=== PATIENT | male | born 1945 ===

== ENCOUNTER 2019-08-11 09:51 | Inpatient (IN) | payer MEDICARE, OTHER ==
--- NOTE | 2019-08-11 10:27 | ED ---
HPI Chest Pain - HPI Summary HPI Summary: Marcela is a 74 y/o M w/ Hx of COPD who presents to [facility] with complaints of cough and right rib pain. He states that he has a "smoker's cough" at baseline but experienced an exacerbation of his cough on 08/09/19. Afterwards, the patient had onset of right-sided rib pain. Deep breaths are noted to aggravate his Sx. Patient is a current smoker, notes that she tries to limit the patient's smoking; patient smokes around 4-5 cigarettes daily on average. Fever, vomiting , diarrhea are denied. Hx of PTSD, depression, HTN noted. Patient reports that he has a stent in his groin. No Hx of [place] or cardiac stents reported. FMHx of cardiac disease is denied. Patient denies alcohol consumption but endorses marijuana usage. Home medications and allergies are reviewed. Home Medications Medication Instructions Recorded Confirmed Type Citalopram TAB* [Celexa TAB*] 20 mg PO DAILY 06/11/12 02/15/15 History Metoprolol Tartrate TAB* 25 mg PO DAILY 06/11/12 02/15/15 History [Lopressor TAB*] Omeprazole CAP* 20 mg PO DAILY 06/11/12 02/15/15 History Temazepam CAP* [Restoril CAP*] 30 mg PO BEDTIME 06/11/12 02/15/15 History Albuterol/Ipratropium NEB.ROSA* 1 neb INH Q6H 02/15/15 02/15/15 History [Duoneb NEB.ROSA*] Atorvastatin* [Lipitor*] 20 mg PO 1700 02/15/15 02/15/15 History Ferrous Sulfate TAB* 325 mg PO BID 02/15/15 02/15/15 History - History of Current Complaint Chief Complaint: EDChestWallPain Time Seen by Provider: 08/11/19 10:17 Hx Obtained From: Patient Onset/Duration: Started Days Ago, Still Present Timing: Constant, Lasting Days Current Severity: Severe Pain Intensity: 8 Pain Scale Used: 0-10 Numeric Chest Pain Location: Right Lateral Aggravating Factor(s): Deep Breaths Associated Signs and Symptoms: Positive: Chest Pain - right rib pain, Cough, Other: - negative - diarrhea. Negative: Fever, Vomiting - Allergy/Home Medications Allergies/Adverse Reactions: Allergies Allergy/AdvReac Type Severity Reaction Status Date / Time amitriptyline Allergy Intermediate Anxiety Verified 08/11/19 11:15 Monoamine Oxidase Inhibitors Allergy Intermediate Swelling Verified 08/11/19 13: 36 thioridazine Allergy Intermediate Anxiety Verified 08/11/19 11:15 Home Medications: Home Medications Citalopram TAB* [Celexa TAB*] 40 mg PO DAILY 06/11/12 [History Confirmed ] Metoprolol Tartrate TAB* [Lopressor TAB*] 12.5 mg PO DAILY 06/11/12 [History Confirmed 08/11/19] Albuterol/Ipratropium NEB.ROSA* [Duoneb NEB.ROSA*] 1 neb INH Q6H 02/15/15 [ History Confirmed 08/11/19] Atorvastatin* [Lipitor*] 80 mg PO DAILY 02/15/15 [History Confirmed 08/11/19] Ferrous Sulfate TAB* 325 mg PO DAILY 02/15/15 [History Confirmed 08/11/19] Albuterol HFA INHALER* [Ventolin HFA Inhaler*] 2 puff INH Q4H PRN 08/11/19 [ History Confirmed 08/11/19] Aspirin EC TAB* [Ecotrin EC Low Dose 81 MG*] 81 mg PO BID 08/11/19 [History Confirmed 08/11/19] Baclofen TAB* [Lioresal TAB*] 10 mg PO TID 08/11/19 [History Confirmed 08/11/19] Cholecalciferol TAB* [Vitamin D TAB*] 1,000 unit PO DAILY 08/11/19 [History Confirmed 08/11/19] Cyanocobalamin INJ * [Vitamin B12 INJ *] 1,000 mcg IM MONTHLY 08/11/19 [History Confirmed 08/11/19] Diazepam TAB(*) [Valium TAB(*)] 10 mg PO DAILY 08/11/19 [History Confirmed 08/11] Ibuprofen TAB* [Motrin TAB* 400 MG] 400 mg PO BID 08/11/19 [History Confirmed ] Lisinopril TAB* [Prinivil TAB*] 2.5 mg PO DAILY 08/11/19 [History Confirmed ] Tamsulosin CAP* [Flomax CAP*] 0.4 mg PO DAILY 08/11/19 [History Confirmed ] PMH/Surg Hx/FS Hx/Imm Hx Endocrine/Hematology History: Denies: Hx Anticoagulant Therapy, Hx Diabetes, Hx Thyroid Disease, Other Endocrine/Hematological Disorders Cardiovascular History: Reports: Hx Hypertension Denies: Hx Pacemaker/ICD, Other Cardiovascular Problems/Disorders Respiratory History: Reports: Hx Chronic Obstructive Pulmonary Disease (COPD), Other Respiratory Problems/Disorders - COPD Denies: Hx Asthma GI History: Reports: Hx Gastroesophageal Reflux Disease, Other GI Disorders - GERD History: Denies: Hx Renal Disease, Other Problems/Disorders Musculoskeletal History: Denies: Other Musculoskeletal History Sensory History: Denies: Other Sensory Impairments Opthamlomology History: Denies: Other Sensory Impairments Neurological History: Denies: Hx Dementia, Hx Seizures, Other Neuro Impairments/Disorders Psychiatric History: Reports: Hx Substance Abuse Denies: Other Psychiatric Issues/Disorders - Surgical History Surgery Procedure, Year, and Place: AAA REPAIR Infectious Disease History: No Infectious Disease History: Reports: Hx Shingles - 1994 Denies: Hx Hepatitis, Hx Human Immunodeficiency Virus (HIV), Traveled Outside the [place] in Last 30 Days - Family History Known Family History: Negative: Cardiac Disease - Social History Alcohol Use: None Substance Use Type: Reports: Marijuana Smoking Status (MU): Light Every Day Tobacco Smoker Type: Cigarettes Amount Used/How Often: 5/cigs day Review of Systems Negative: Fever Positive: Chest Pain - right rib pain Positive: Cough Negative: Vomiting, Diarrhea All Other Systems Reviewed And Are Negative: Yes Physical Exam - Summary Physical Exam Summary: Constitutional: Well-developed, Well-nourished, Alert. (-) Distressed Skin: Warm, Dry HENT: Normocephalic; Atraumatic Eyes: Conjunctiva normal Neck: Musculoskeletal ROM normal neck. (-) JVD, (-) Stridor, (-) Tracheal deviation Cardio: Rhythm regular, rate normal, Heart sounds normal; Intact distal pulses; Radial pulses are 2+ and symmetric. (-) Murmur Pulmonary/Chest wall: (+) Right lateral chest wall pain; (+) Wheezing in right lung field; (-) Respiratory distress, (-) Rales Abd: Soft, (-) tenderness, (-) Distension, (-) Guarding, (-) Rebound Musculoskeletal: (-) Edema Lymph: (-) Cervical adenopathy Neuro: Alert, Oriented x3 Psych: Mood and affect Normal Triage Information Reviewed: Yes Vital Signs On Initial Exam: Initial Vitals Temp Pulse Resp BP Pulse Ox 98.8 F 66 20 164/95 95 08/11/19 09:54 08/11/19 09:54 08/11/19 09:54 08/11/19 09:54 08/11/19 09:54 Vital Signs Reviewed: Yes Procedures - Sedation Patient Received Moderate/Deep Sedation with Procedure: No Diagnostics - Vital Signs Vital Signs Temp Pulse Resp BP Pulse Ox 08/11/19 09:54 98.8 F 66 20 164/95 95 - Laboratory Result Diagrams: 08/11/19 10:50 08/11/19 10:50 Lab Statement: Any lab studies that have been ordered have been reviewed, and results considered in the medical decision making process. - Radiology CXR with ribs Radiology Interpretation Completed By: Radiologist Summary of Radiographic Findings: IMPRESSION: 1. Minimally displaced right lateral eighth and ninth rib fractures. Trace right pleural. effusion with no pneumothorax. 2. Old right 10th rib fracture. 3. Abdominal aortic stent. THIS REPORT WAS REVIEWED BY ED PHYSICIAN. - EKG 1051 Cardiac Rate: NL EKG Rhythm: Sinus Rhythm - rate of 63 BPM Summary of EKG Findings: EKG showed NSR with rate of 63 BPM, T-wave inversion in aVF, no evidence for ischemia, no STEMI. ED physician has reviewed and interpreted this EKG. Chest Pain Course/Dx - Course Course Of Treatment: Patient is here with right-sided chest pain after coughing. Patient had an x-ray which showed right-sided rib fractures. However , given patient's age and no evidence of trauma, labs were ordered. Patient did have an elevated troponin which was unexplainable. Patient has no risk factors for PE. However, given patient's elevated troponin and no history of cardiac disease, patient is admitted for further workup - Diagnoses Provider Diagnoses: Elevated troponin, Rib fracture, Chest pain - Provider Notifications Discussed Care Of Patient With: Regan Hook Time Discussed With Above Provider: 12:00 Instructed by Provider To: Admit As Inpatient Discharge ED - Sign-Out/Discharge Documenting (check all that apply): Patient Departure - admit - Discharge Plan Condition: Stable Disposition: ADMITTED TO [facility] - Billing Disposition and Condition Condition: STABLE Disposition: Admitted to [facility] - Attestation Statements Document Initiated by Scribe: Yes Documenting Scribe: HORACE CRANE Provider For Whom Scribe is Documenting (Include Credential): MARKO WHITESIDE MD Scribe Attestation: I, HORACE CRANE, scribed for MARKO WHITESIDE MD on 08/11/19 at 2155. Scribe Documentation Reviewed: Yes Provider Attestation: The documentation as recorded by the HORACE falk accurately reflects the service I personally performed and the decisions made by me, MARKO WHITESIDE MD Status of Scribe Document: Viewed
[2019-08-11 11:11] LABS: ABS Basophils 0.1 10^3/ul (0-0.2); ABS Eosinophils 0.1 10^3/ul (0-0.6); ABS Lymphocytes 1.1 10^3/ul (1.0-4.8); ABS Monocytes 0.7 10^3/ul (0-0.8); Eosinophil % 1.1 %; Hematocrit 36 % (42-52); Hemoglobin 12.3 g/dL (14.0-18.0); Mean Corpuscular HGB Conc 34 g/dL (31-36); Mean Corpuscular Hemoglobin 32 pg (27-31); Mean Corpuscular Volume 93 fL (80-94); Mean Platelet Volume 8.4 fL (7.4-10.4); Platelet Count 187 10^3/uL (150-450); Red Blood Count 3.85 10^6 /uL (4.18-5.48); Red Cell Distribution Width 15 % (10-15)
[2019-08-11 11:40] LABS: Troponin I 0.05 ng/mL (<0.03)
[2019-08-11 11:49] LABS: ALT 13 U/L (7-52); AST 16 U/L (13-39); Albumin/Globulin Ratio 1.7 (1-3); Alkaline Phosphatase 97 U/L (34-104); Anion Gap 5 mmol/L (2-11); Blood Urea Nitrogen 13 mg/dL (6-24); CO2 Carbon Dioxide 32 mmol/L (22-32); Calcium 8.8 mg/dL (8.6-10.3); Chloride 104 mmol/L (101-111); EGFR African American 65.7 (>60); EGFR Non-African American 54.3 (>60); Globulin 2.3 g/dL (2-4); Glucose 72 mg/dL (70-100); Potassium 3.5 mmol/L (3.5-5.0); Sodium 141 mmol/L (135-145); Total Protein 6.3 g/dL (6.4-8.9)
[2019-08-11] MEDS ORDERED: Albuterol HFA INHALER* 8 gm MDI INH PRN (12:52)
[2019-08-11] MEDS ORDERED: NS 0.9% 1000 ML** 1,000 ML IV SCH (13:15)
--- NOTE | 2019-08-11 14:11 | HP ---
CC: GARY Dash * HISTORY AND PHYSICAL: DATE OF ADMISSION: 08/11/19 PRIMARY CARE PROVIDER: GARY Dash ATTENDING PHYSICIAN: Dr. Regan Hook * (dictated by GARY Aragon). CHIEF COMPLAINT: Right lateral chest wall pain. HISTORY OF PRESENT ILLNESS: Mr. Rosales is a 74-year-old male with past medical history of hypertension, COPD, chronic pain, who presented to the ER today with complaints of right lateral chest wall pain. The patient states that on 08/09/19, he was coughing and suddenly developed right lateral chest wall pain. The patient reports that he has had a cough for "30 to 40 years." This time, he coughed and felt sudden onset pain. He reports that the pain felt like a knife to the right side. The pain only occurs with coughing or sneezing. He denies pain with deep breathing. He denies fevers, chills, recent travel. He denies left-sided chest pain, radiation of pain, diaphoresis. He does complain of dyspnea, although he reports that he had always had this and there has been no change in his dyspnea. He occasionally becomes dizzy with standing and has had this for years. He has had bilateral lower extremity edema since May without associated change in dyspnea. In the ER, the patient received a full workup revealing a normocytic anemia, elevated creatinine, troponin of 0.05. EKG was obtained and shows heart rate 62 with flat T-waves in II, inverted T-waves in III and aVF (unchanged from 2010 EKG); also possible ST depression in V3 without any ST elevation. Right ribs and chest x- ray were obtained and shows minimally displaced right lateral 8th through 9th rib fractures, trace right pleural effusion without pneumothorax , old right 10th rib fracture, abdominal aortic stent. The patient's HEART score is 5, placing him at moderate risk. The hospitalist team was asked to evaluate the patient for admission. PAST MEDICAL HISTORY: 1. Hypertension. 2. COPD. 3. Iron-deficiency anemia. 4. GERD. 5. BPH. 6. Chronic pain. 7. Anxiety/depression. HOME MEDICATIONS: 1. Albuterol HFA inhaler 2 puffs inhalation q.4 hours p.r.n. 2. DuoNeb 1 neb inhalation q.6 hours. 3. Aspirin 81 mg p.o. b.i.d. 4. Atorvastatin 80 mg p.o. daily. 5. Baclofen 10 mg p.o. t.i.d. 6. Cholecalciferol 1000 units p.o. daily. 7. Citalopram 40 mg p.o. daily. 8. Cyanocobalamin 1000 mg IM monthly. 9. Diazepam 10 mg p.o. daily. 10. Ferrous sulfate 325 mg p.o. daily. 11. Ibuprofen 400 mg p.o. b.i.d. 12. Lisinopril 2.5 mg p.o. daily. 13. Metoprolol tartrate 12.5 mg p.o. daily. 14. Tamsulosin 0.4 mg p.o. daily. DRUG ALLERGIES: AMITRIPTYLINE, anxiety; THIORIDAZINE, anxiety; MAOI INHIBITORS , swelling. FAMILY HISTORY: Maternal grandmother, breast cancer. Father from COPD as a result of being a electron beam welder. Mother had uterine cancer. The patient had 1 brother with diabetes mellitus. The patient has had 6 brothers, 3 brothers have from various causes including overdose, AIDS, Alzheimer's complications. No family history of heart disease, CVA. SOCIAL HISTORY: The patient has a 120-pack year tobacco use history. He has decreased to approximately 5 to 6 cigarettes per day for the last 2 months. He does not use alcohol. He uses marijuana weekly. He is , with 2 children. He lives with his spouse and [id number]. He was in the [employer] for 3 years and had been stationed in [place]. He is retired since 1979. 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 In the event that he is unable to make his own medical decisions, he has appointed his , Diana Rosales, to be his surrogate decision maker. He has opted to be a full code. REVIEW OF SYSTEMS: A 14-point review of systems has been performed and all the pertinent positives and negatives are in the HPI. All other systems are negative. PHYSICAL EXAMINATION GENERAL: Mr. Rosales is a well-developed, well-nourished, thin, older white male, who is sitting up in bed. He appears to be in no acute distress. He does appear mildly chronically ill. HEENT: PERRL. EOMI. Sclerae are nonicteric without injection. Hearing is grossly intact. Oral mucous membranes are mildly dry. Pharynx is clear. The tongue is at midline. Palate elevates symmetrically. PULMONARY: Symmetrical chest expansion without use of accessory muscles. Diminished breath sounds throughout with end-expiratory wheezing without rales or rhonchi. CARDIOVASCULAR: Regular rate and rhythm with S1, S2 present. Heart sounds are distant. No murmurs, rubs, clicks, or gallops. There is no JVD. There is bilateral 1+ pitting pretibial edema. ABDOMEN: Flat. Bowel sounds in all quadrants. Soft, nontender to palpation. MUSCULOSKELETAL: Full range of motion. No pain or deformity. NEURO: The patient is awake. He is alert and oriented x3. Cranial nerves II through XII are grossly intact. He moves all of his extremities. His motor strength is 5/5 bilaterally in the upper and lower extremities. DIAGNOSTIC STUDIES/LAB DATA: 1. CBC: WBC 9.0, HGB 12.3, HCT 36, MCV 93, platelets 187. 2. CMP: Sodium 141, potassium 3.5, chloride 104, carbon dioxide 32, creatinine 1.30, BUN 13. Troponin 0.05. 3. EKG: Rate 63; flat T-wave in lead II; inverted T-wave in III, aVF; possible ST depression in V3. No ST elevation. 4. Right rib/PA chest x-ray, impression: Minimally displaced right lateral 8th and 9th rib fractures. Trace right pleural effusion with no pneumothorax. Old right 10th rib fracture. Abdominal aortic stent. ASSESSMENT AND PLAN: Mr. Rosales is a 74-year-old male with past medical history of hypertension, chronic obstructive pulmonary disease with chronic cough, who was coughing 2 days ago and suddenly experienced right-sided chest pain and is found to have a right rib fracture and elevated troponin. The patient will be admitted for: 1. Chest pain. The patient reports right lateral chest wall pain. This is likely due to his right-sided rib fracture. Incidentally noted is an elevated troponin of 0.05 as well as some EKG abnormalities including possible ST depression in lead V3; T-wave abnormalities in II, III and aVF appear chronic and are unchanged from 2010. Due to the above findings, we will rule out acute coronary syndrome. We will continue to trend the patient's troponins. He will have an echocardiogram due to chest pain, EKG abnormalities, and lower extremity edema that he reports for the last approximately 2 months. Risk stratification will be done with lipid panel and hemoglobin A1c. Repeat EKG will be obtained in the morning. The patient will receive a nuclear medicine stress test. 2. Right rib fracture. The patient has right lateral minimally displaced 8th through 9th rib fractures without pneumothorax. We will continue pain management and conservative treatment. 3. Elevated creatinine. The patient's creatinine is 1.30. Last creatinine in 2011 was within normal limits. I am unsure if this is acute kidney injury or chronic kidney disease. He will receive 1 L IV fluids at 75 cc per hour with recheck of creatinine in a.m. to attempt to determine if this is acute kidney injury versus chronic condition. 4. Hypertension. Continue home medications, lisinopril and metoprolol. We will add on IV hydralazine as the patient is hypertensive at this time. 5. Chronic obstructive pulmonary disease. Continue home medications, which include albuterol inhaler and DuoNeb nebulizer. 6. Iron-deficiency anemia. Continue iron supplementation. 7. Chronic pain. Continue baclofen. 8. Benign prostatic hyperplasia. Continue tamsulosin. 9. Depression/anxiety. Continue citalopram, diazepam. 10. DVT prophylaxis: According to DVT Risk Assessment, the patient scores 3, placing him at high risk. He has been started on Lovenox. 11. Code status: Full code. TIME SPENT: Approximately 60 minutes was spent on this admission, greater than half that time was spent [id number] with the patient obtaining history, performing physical, and reviewing the plan of care. The case has been discussed with my attending, Dr. Hook, who is in agreement with the plan of care. GARY CORTES [id number]/[facility] #: [id number] BLAIR
--- NOTE | 2019-08-11 14:14 | ECHO ---
*[facility]* [place] [address] Fax #: [phone] Transthoracic Echocardiogram Patient: Denver Rosales : 1945 Study Date: 08/11/2019 Age: 74 Gender: M HR: 65 bpm Height: 66 in /167.6 cm BSA: 1.6 m^2 Weight: 117.8 lb /53.5 kg BMI: 19 kg/m^2 *Fish And Wildlife Technician: * Gabriella Franklin RD *Referring Physician: * Celeste FloresReading Physician: * Diana Odell MD Indications: Abnormal EKG. Chest Pain, unspecified. History: Chronic obstructive pulmonary disease. Risk factors: Current tobacco use. Hypertension. Abdominal Aortic Aneurysm. Conclusions Summary: - Left ventricle: The cavity size is normal. Wall thickness is at the upper limits of normal. Systolic function is normal. The estimated ejection fraction is 55-60%. Wall motion is normal; there are no regional wall motion abnormalities. Left ventricular diastolic function parameters are normal for the patient's age. - Right ventricle: Systolic function is normal. - Mitral valve: There is trace to mild regurgitation. - Aortic valve: The findings are consistent with mild stenosis. There is trace regurgitation. The mean systolic gradient is 5.0 mm Hg. The valve area by the velocity-time integral method is 1.39 cm^2. The ratio of LVOT to aortic valve peak velocity is 0.52. - Tricuspid valve: There is mild regurgitation. - Ascending aorta: The ascending aorta is mildly dilated. - Pulmonary arteries: Systolic pressure is within the normal range. Pulmonary artery pressure may be underestimated The peak pressure during systole by Doppler is 31.0 mm Hg. - No prior echocardiogram available to compare. Study data: Transthoracic echocardiogram. Procedure: Transthoracic echocardiography was performed. Image quality was good. Complete 2D, spectral Doppler, and color flow Doppler. Location: Emergency department. Patient status: Inpatient. Patient room number: ED-05. Rhythm: Normal sinus rhythm. Findings Left ventricle: The cavity size is normal. Wall thickness is at the upper limits of normal. Systolic function is normal. The estimated ejection fraction is 55-60%. Wall motion is normal; there are no regional wall motion abnormalities. Left ventricular diastolic function parameters are normal for the patient's age. Right ventricle: The cavity size is normal. Systolic function is normal. Left atrium: The atrium is normal in size. Right atrium: The atrium is normal in size. Mitral valve: The leaflets are mildly thickened. There is no evidence of stenosis. There is trace to mild regurgitation. Aortic valve: The annulus is mildly calcified. The valve is trileaflet. The leaflets are mildly thickened. Cusp separation is mildly reduced, particularly LCC. The findings are consistent with mild stenosis. There is trace regurgitation. Tricuspid valve: The leaflets are normal thickness. There is no evidence of stenosis. There is mild regurgitation. Pulmonic valve: The leaflets are normal thickness. There is no evidence of stenosis. There is trace regurgitation. Aorta: Aortic root: The aortic root is mildly dilated. Ascending aorta: The ascending aorta is mildly dilated. Aortic arch: The aortic arch is poorly visualized. Pericardium: There is no significant pericardial effusion. Pulmonary arteries: The main pulmonary artery is normal-sized. Systolic pressure is within the normal range. Pulmonary artery pressure may be underestimated Systemic veins: Inferior vena cava: The vessel is dilated. There is (>= 50%) respiratory change in the IVC dimension. Measurements Left ventricle Value Ref Right atrium continued Value Ref LAILA, LAX 4.4 cm 4.2 - 5.8 ML dim, ES, A4C 3.3 cm 2.6 - 4.4 ESD, LAX 3.3 cm 2.5 - 4.0 Estimated RAP 8 mm Hg --------- FS, LAX 26 % 25 - 43 PW, ED, LAX 1.0 cm 0.6 - 1.0 Aortic valve Value Ref FS 26 % 25 - 43 David diam, ED 2.3 cm --------- PW, ED 1.0 cm 0.6 - 1.0 Peak v, S 1.51 m/sec --------- E', lat david, TDI (L) 5.3 cm/sec >=10.0 VTI, S 38.3 cm -- ------- E/e', lat david, 10 Mean grad, S 5.0 mm Hg ----- ---- TDI Peak grad, S 9.0 mm Hg --------- E', med david, TDI (L) 4.1 cm/sec >=7.0 LVOT/AV, VTI ratio 0.44 -- ------- E/e', med david, 13 ROHAN, VTI 1.39 cm^2 ----- ---- TDI ROHAN, Vmax 1.62 cm^2 --------- E', avg, TDI 4.7 cm/sec E/e', avg, TDI 11 <=14 Mitral valve Value Re f Peak E 0.52 m/sec --------- LVOT Value Ref Peak A 0.83 m/sec --------- Diam, S 2.00 cm Decel time 243 ms --------- Area 3.1 cm^2 Peak E/A ratio 0.6 --------- Peak amelie, S 0.78 m/sec VTI, S 17.0 cm Pulmonic valve Value Ref Mean grad, S 1 mm Hg Peak v, S 0.74 m/sec --------- SV 53 ml Peak grad, S 2.0 mm Hg --------- SV/bsa 33 ml/m^2 Tricuspid valve Value Ref Ventricular septum Value Ref TR peak v 2.5 m/sec <=2.8 IVS, ED (H) 1.1 cm 0.6 - 1.0 Peak RV-RA grad, S 25 mm Hg --------- Max TR amelie 2.22 m/sec --------- Right ventricle Value Ref LAILA, LAX 3.0 cm Aortic root Value Ref LAILA minor ax, A4C 3.3 cm 1.9 - 3.5 Root diam (H) 3.8 cm <3.8 mid Pressure, S 33 mm Hg Ascending aorta Value Ref AAo AP diam, S 3.8 cm --------- Left atrium Value Ref AP dim, ES 3.50 cm 3.00 - Pulmonary artery Value Ref 4.00 Pressure, S 31.0 mm Hg --------- ML dim, A4C 3.8 cm SI dim, A4C 4.3 cm Inferior vena cava Value Ref Vol/bsa, ES, 1-p 20 ml/m^2 12 - 37 Diam 2.1 cm --------- A4C Vol/bsa, ES, A/L 22 ml/m^2 16 - 34 Right atrium Value Ref SI dim, ES (L) 3.2 cm 3.4 - 5.3 Legend: (L) and (H) fernanda values outside specified reference range. Prepared and electronically signed by Diana Odell MD 08/11/2019 14:13
[2019-08-11] MEDS: Enoxaparin(*) 40 MG/0.4 ML SYR SUBCUT SCH (14:56)
[2019-08-11] MEDS: Nicotine PATCH 21 MG/24 HR* PATCH TRANSDERM SCH (14:56)
[2019-08-11] MEDS: Baclofen TAB* 10 MG PO SCH ×2 (14:56→20:44)
[2019-08-11] MEDS: hydrALAZINE IV* 20 MG/ML VIAL IV SLOW PU PRN (16:05)
[2019-08-11] MEDS: Acetaminophen TAB* 325 MG PO PRN (17:19)
[2019-08-11] MEDS ORDERED: Labetalol IV* 5 MG/ML 20 ML VIAL IV PUSH ONE ×2 (18:07→19:37)
[2019-08-11] MEDS ORDERED: amLODIPine TAB* 5 MG PO ONE (19:38)
[2019-08-11] MEDS: Nicotine Patch Removal NOTE FOLLOW UP SCH (20:45)
[2019-08-11] MEDS: Albuterol/Ipratropium NEB.SOL* Albuterol 2.5 MG/Ipratropium 0.5 MG 3 ML INH PRN (21:23)
[2019-08-12] MEDS: Albuterol/Ipratropium NEB.SOL* Albuterol 2.5 MG/Ipratropium 0.5 MG 3 ML INH PRN ×3 (02:31→19:36)
[2019-08-12] MEDS: hydrALAZINE IV* 20 MG/ML VIAL IV SLOW PU PRN (02:41)
[2019-08-12] MEDS ORDERED: Ondansetron INJ* 2 MG/ML VIAL IV PRN (03:17)
[2019-08-12] MEDS: Acetaminophen TAB* 325 MG PO PRN (03:26)
[2019-08-12 05:16] LABS: BUN/Creatinine Ratio 11.2 (8-20); Calcium 8.6 mg/dL (8.6-10.3); EGFR African American 68.7 (>60); EGFR Non-African American 56.8 (>60); HDL Cholesterol 48.7 mg/dL; Potassium 3.6 mmol/L (3.5-5.0)
[2019-08-12] MEDS: Cholecalciferol TAB* 1000 UNITS PO SCH (08:54)
[2019-08-12] MEDS: Tamsulosin CAP* 0.4 MG PO SCH (08:54)
[2019-08-12] MEDS: Lisinopril TAB* 10 MG PO SCH (08:54)
[2019-08-12] MEDS: Aspirin EC TAB* 81 MG TAB.EC PO SCH (08:54)
[2019-08-12] MEDS: Atorvastatin* 80 MG TAB PO SCH (08:54)
[2019-08-12] MEDS: Ferrous Sulfate TAB* 325 MG PO SCH (08:54)
[2019-08-12] MEDS: Baclofen TAB* 10 MG PO SCH ×3 (08:54→20:24)
[2019-08-12] MEDS: Citalopram TAB* 40 MG PO SCH (08:55)
[2019-08-12] MEDS: Nicotine PATCH 21 MG/24 HR* PATCH TRANSDERM SCH (08:58)
[2019-08-12] MEDS ORDERED: Diazepam TAB(*) 10 MG PO SCH (09:00)
[2019-08-12] MEDS ORDERED: Metoprolol Tartrate TAB* 25 MG PO SCH (09:00)
[2019-08-12] MEDS ORDERED: Lisinopril TAB* 5 MG PO SCH ×2 (09:00)
[2019-08-12] MEDS: Enoxaparin(*) 40 MG/0.4 ML SYR SUBCUT SCH (13:39)
[2019-08-12] MEDS ORDERED: Regadenoson* 0.4 MG/5 ML SYRINGE ONE (13:55)
[2019-08-12] MEDS ORDERED: Ibuprofen TAB* 800 MG PO PRN (14:32)
[2019-08-12] MEDS ORDERED: guaiFENesin/CODIENE 100mg/10mg 5 ML UDC PO PRN (14:32)
--- NOTE | 2019-08-12 14:33 | PN ---
Subjective Date of Service: 08/12/19 Interval History: Patient and his confirm that the last 2-3 days he has been coughing more frequently, with more strength, and with more sputum production, and feeling short of breath. His sputum is the same color -opaque. Denies fever/chills, SOB at rest. Chest pain is well controlled when not coughing. Called patient's PCP office and RN told me in December 2018 in office visit patient had O2 sat 95% on room air. Objective Active Medications: Acetaminophen (Tylenol Tab*) 650 mg PO Q4H PRN PRN Reason: mild to moderate pain Last Admin: 08/12/19 03:26 Dose: 650 mg Albuterol (Ventolin Hfa Inhaler*) 2 puff INH Q4H PRN PRN Reason: SOB/WHEEZING Last Admin: 08/11/19 17:23 Dose: 2 puff Albuterol/Ipratropium (Duoneb (Albuterol 2.5 Mg/Ipratropium 0.5 Mg)) 1 neb INH [id number] AWAKE PRN PRN Reason: sob/wheexing Last Admin: 08/12/19 13:01 Dose: 1 neb Aspirin (Aspirin Ec Tab*) 81 mg PO DAILY [facility] Last Admin: 08/12/19 08:54 Dose: 81 mg Atorvastatin Calcium (Lipitor*) 80 mg PO DAILY [facility] Last Admin: 08/12/19 08:54 Dose: 80 mg Baclofen (Lioresal Tab*) 10 mg PO TID [facility] Last Admin: 08/12/19 13:39 Dose: 10 mg Cholecalciferol (Vitamin D Tab*) 1,000 units PO DAILY [facility] Last Admin: 08/12/19 08:54 Dose: 1,000 units Citalopram Hydrobromide (Celexa Tab*) 40 mg PO DAILY [facility] Last Admin: 08/12/19 08:55 Dose: 40 mg Diazepam (Valium Tab(*)) 10 mg PO DAILY [facility] Last Admin: 08/12/19 08:54 Dose: 10 mg Enoxaparin Sodium (Lovenox(*)) 40 mg SUBCUT Q24H [facility] Last Admin: 08/12/19 13:39 Dose: 40 mg Ferrous Sulfate (Ferrous Sulfate Tab*) 325 mg PO DAILY [facility] Last Admin: 08/12/19 08:54 Dose: 325 mg Hydralazine HCl (Apresoline Iv*) 5 mg IV SLOW PU Q6H PRN PRN Reason: SBP > 160 Last Admin: 08/12/19 02:41 Dose: 5 mg Lisinopril (Prinivil Tab*) 10 mg PO DAILY [facility] Last Admin: 08/12/19 08:54 Dose: 10 mg Metoprolol Tartrate (Lopressor Tab*) 12.5 mg PO DAILY [facility] Last Admin: 08/12/19 08:55 Dose: 12.5 mg Nicotine (Nicotine Patch 21 Mg/24 Hr*) 1 patch TRANSDERM DAILY [facility] Last Admin: 08/12/19 08:58 Dose: 1 patch Ondansetron HCl (Zofran Inj*) 4 mg IV Q6H PRN PRN Reason: NAUSEA Last Admin: 08/12/19 03:27 Dose: 4 mg Pharmacy Profile Note (Nicotine Patch Removal Note*) 1 note FOLLOW UP 2100 [facility] Last Admin: 08/11/19 20:45 Dose: 1 note Tamsulosin HCl (Flomax Cap*) 0.4 mg PO DAILY [facility] Last Admin: 08/12/19 08:54 Dose: 0.4 mg Vital Signs - 8 hr 08/12/19 08/12/19 08/12/19 07:39 08:00 08:54 Temperature 97.3 F Pulse Rate 79 Respiratory 20 20 20 Rate Blood Pressure 181/75 (mmHg) O2 Sat by Pulse 97 Oximetry 08/12/19 08/12/19 08/12/19 09:00 11:30 11:39 Temperature 98.2 F Pulse Rate 73 Respiratory 20 18 Rate Blood Pressure 178/78 147/84 (mmHg) O2 Sat by Pulse 93 Oximetry 08/12/19 13:17 Temperature Pulse Rate 68 Respiratory 18 Rate Blood Pressure (mmHg) O2 Sat by Pulse 92 Oximetry Oxygen Devices in Use Now: Nasal Cannula Appearance: Thin, elderly white male, laying in bed, appearing comfortable and in no acute distress Eyes: No Scleral Icterus, - - PERRL Ears/Nose/Mouth/Throat: Mucous Membranes Moist Neck: Trachea Midline Respiratory: Symmetrical Chest Expansion and Respiratory Effort, - - scattered rhonchi, no wheezes or crackles Cardiovascular: NL Sounds; No Murmurs; No JVD, RRR Abdominal: - - abd soft, nontender, nondistended Extremities: No Edema, No Clubbing, Cyanosis Skin: No Rash or Ulcers Neurological: Alert and Oriented x 3 Result Diagrams: 08/11/19 10:50 08/12/19 04:37 Assess/Plan/Problems-Billing Assessment: 74 yo white male with PMHx COPD, HTN, TOSHA, GERD, BPH, chornic pain, tobacco use , anxiety who presents with right sided chest pain. - Patient Problems (1) Acute respiratory failure with hypoxia Current Visit: Yes Status: Acute Code(s): J96.01 - ACUTE RESPIRATORY FAILURE WITH HYPOXIA SNOMED Code(s): 39846190 Comment: -patient presents with chest pain, now with new 2L oxygen requirement at rest -increased cough, SOB, and sputum production leading up to today -represents COPD exacerbation 2/2 ongoing smoking -scheduled duonebs, prednisone, azithromycin -starting spiriva -starting cough syrup with codeine considering cough causing pain with recent rib fx -will wean O2 as tolerated (2) COPD (chronic obstructive pulmonary disease) Current Visit: Yes Status: Acute Code(s): J44.9 - CHRONIC OBSTRUCTIVE PULMONARY DISEASE, UNSPECIFIED SNOMED Code(s): 95538082 Comment: -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 Patient tells me he has an annual chest CT and thus far has no recent evidence of lung nodules -would perhaps benefit from bone scan outpatient -continue pain control (4) Elevated troponin Current Visit: Yes Status: Acute Code(s): R79.89 - OTHER SPECIFIED ABNORMAL FINDINGS OF BLOOD CHEMISTRY SNOMED Code(s): 854026734 Comment: -minimally elevated to 0.05 at admission which has since downtrended -with T wave inversions in inferior leads -echo without wall motion abnormality and EF wnl; stress test is low risk -likely related to ischemic demand (5) HTN (hypertension) Current Visit: Yes Status: Acute Code(s): I10 - ESSENTIAL (PRIMARY) HYPERTENSION SNOMED Code(s): 43517127 Comment: -hypertensive urgency at admission, likely related to pain from rib fracture -continue metoprolol and lisinopril (6) Iron deficiency anemia Current Visit: Yes Status: Acute Code(s): D50.9 - IRON DEFICIENCY ANEMIA, UNSPECIFIED SNOMED Code(s): 28346716 Comment: -iron supplement (7) GERD (gastroesophageal reflux disease) Current Visit: Yes Status: Acute Code(s): K21.9 - GASTRO-ESOPHAGEAL REFLUX DISEASE WITHOUT ESOPHAGITIS SNOMED Code(s): 112331774 Comment: -continue home PPI (8) Anxiety Current Visit: Yes Status: Acute Code(s): F41.9 - ANXIETY DISORDER, UNSPECIFIED SNOMED Code(s): 38545882 Comment: -continue citalopram (9) Tobacco use Current Visit: Yes Status: Acute Code(s): Z72.0 - TOBACCO USE SNOMED Code( s): 081290269 Comment: -nicotine patch -discussed smoking cessation (10) DVT prophylaxis Current Visit: Yes Status: Acute Code(s): Z29.9 - ENCOUNTER FOR PROPHYLACTIC MEASURES, UNSPECIFIED SNOMED Code(s): 003952154 Comment: -lovenox (11) Full code status Current Visit: Yes Status: Acute Code(s): Z78.9 - OTHER SPECIFIED HEALTH STATUS SNOMED Code(s): 261230721 Status and Disposition: inpatient for further mgmt
[2019-08-12] MEDS ORDERED: Azithromycin 500 mg/250 ml NS 500 MG/250 ML BAG IVPB ONE (15:00)
[2019-08-12] MEDS: SPIRIVA Respimat* (tiotropium) 2.5 mcg/inh Inhaler INH SCH (15:02)
[2019-08-12] MEDS: Albuterol HFA INHALER* 8 gm MDI INH SCH ×2 (15:02→19:54)
[2019-08-12] MEDS: Polyethylene Glycol 3350* 17 GM PACKET PO SCH (15:03)
[2019-08-12] MEDS: Metoprolol Tartrate TAB* 25 MG PO SCH (20:24)
[2019-08-12] MEDS: Nicotine Patch Removal NOTE FOLLOW UP SCH (20:35)
[2019-08-12] MEDS ORDERED: Diazepam TAB(*) 5 MG PO ONE (20:50)
[2019-08-13] MEDS: hydrALAZINE IV* 20 MG/ML VIAL IV SLOW PU PRN (03:51)
[2019-08-13] MEDS: Albuterol HFA INHALER* 8 gm MDI INH SCH ×2 (06:44→07:55)
[2019-08-13] MEDS ORDERED: Albuterol 2.5 MG/3 ML NEB.SOL* (0.083%) INH PRN (07:53)
[2019-08-13] MEDS ORDERED: Albuterol HFA INHALER* 8 gm MDI INH PRN (07:55)
[2019-08-13] MEDS: SPIRIVA Respimat* (tiotropium) 2.5 mcg/inh Inhaler INH SCH (07:56)
[2019-08-13] MEDS: Albuterol/Ipratropium NEB.SOL* Albuterol 2.5 MG/Ipratropium 0.5 MG 3 ML INH PRN (07:56)
[2019-08-13] MEDS ORDERED: Azithromycin TAB* 250 MG PO SCH (09:00)
[2019-08-13] MEDS: Polyethylene Glycol 3350* 17 GM PACKET PO SCH (09:00)
[2019-08-13] MEDS ORDERED: Pantoprazole TAB * 40 MG TAB PO SCH (09:00)
[2019-08-13] MEDS ORDERED: Diazepam TAB(*) 10 MG PO SCH (09:00)
[2019-08-13] MEDS: Lisinopril TAB* 10 MG PO SCH (09:02)
[2019-08-13] MEDS: Atorvastatin* 80 MG TAB PO SCH (09:02)
[2019-08-13] MEDS: Ferrous Sulfate TAB* 325 MG PO SCH (09:03)
[2019-08-13] MEDS: Baclofen TAB* 10 MG PO SCH (09:03)
[2019-08-13] MEDS: Aspirin EC TAB* 81 MG TAB.EC PO SCH (09:04)
[2019-08-13] MEDS: Citalopram TAB* 40 MG PO SCH (09:04)
[2019-08-13] MEDS: Tamsulosin CAP* 0.4 MG PO SCH (09:04)
[2019-08-13] MEDS: Cholecalciferol TAB* 1000 UNITS PO SCH (09:05)
[2019-08-13] MEDS: Nicotine PATCH 21 MG/24 HR* PATCH TRANSDERM SCH (09:05)
[2019-08-13] MEDS: Metoprolol Tartrate TAB* 25 MG PO SCH (09:05)
[2019-08-13] MEDS ORDERED: Lisinopril TAB* 10 MG PO ONE (09:44)
[2019-08-13 11:41] VITALS: BP 154/79
[2019-08-13] MEDS ORDERED: Albuterol/Ipratropium NEB.SOL* Albuterol 2.5 MG/Ipratropium 0.5 MG 3 ML INH SCH (13:00)
--- NOTE | 2019-08-13 15:57 | DS ---
CC: GARY Dash* DISCHARGE SUMMARY: DATE OF ADMISSION: 08/11/19 DATE OF DISCHARGE: 08/13/19 ATTENDING PHYSICIAN WHILE IN THE HOSPITAL: Dr. Seals * (dictated by GARY Butts). PRIMARY CARE PROVIDER: GARY Dash, at the [facility] in [place]. PRIMARY DIAGNOSES: 1. Right-sided 8th and 9th rib fractures. 2. Chronic obstructive pulmonary disease exacerbation. SECONDARY DIAGNOSES: 1. Hypertension. 2. Chronic obstructive pulmonary disease. 3. Iron-deficiency anemia. 4. Gastroesophageal reflux disease. 5. Benign prostatic hypertrophy. 6. Chronic pain. 7. Anxiety/depression. 8. Essential tremor. PERTINENT STUDIES WHILE IN THE HOSPITAL: Chest x-ray with ribs on 08/11/19, impression: Minimally displaced right lateral 8th and 9th rib fractures. Trace right pleural effusion with no pneumothorax. Old right 10th rib fracture. Abdominal aortic stent. Transthoracic echocardiogram on 08/11/19: EF of 55% to 60%. Wall motion is normal and without regional wall motion abnormalities. Left ventricular diastolic function parameters are normal. The ascending aorta is mildly dilated. Please see full report for further details. The nuclear medicine stress test read by the radiologist that demonstrates no definite fixed or reversible perfusion defects and the assessment is low risk. PERTINENT LAB VALUES: Troponin 0.05, then later 0.01 x2 readings. Hemoglobin A1c 5.8. LDL 43. HISTORY OF PRESENT ILLNESS/HOSPITAL COURSE: Denver Rosales is a 74-year-old white male who presented to the emergency department on 08/11/19 due to right- sided chest pain. He has had a cough for 30 to 40 years related to COPD and had developed some right-sided chest pain and presented to the emergency department. He said that it was felt like a stabbing pain. He was found to have right-sided minimally displaced rib fractures; however, no pneumothorax was found. He was admitted to the hospital due to minimally elevated troponin to 0.05, so he could be evaluated for acute coronary syndrome. His stress test was found to be negative and his echocardiogram was without any concerning findings and therefore ACS was ruled out. However, the patient was continuing to require oxygen desaturating to the low 80% on room air and requiring 2 L of oxygen. I believe that likely this was due to the beginning of COPD exacerbation. He tells me that he has the coughing with more force and that he does have increased sputum production over the last 2 days leading up to his presentation and I believe this is the beginning of a COPD exacerbation. I did start the patient on azithromycin, prednisone, and cough medicine with codeine to help minimize the cough, especially considering his chest wall pain. He did not really want any pain medications other than ibuprofen and Tylenol and he was well controlled with this when he was coughing less frequently. By date of discharge, the patient was without any oxygen requirement at rest and he maintained his oxygen saturation in the 90s with ambulation as well. The patient was afebrile during his hospitalization and without leukocytosis. The patient additionally was frequently hypertensive during his hospitalization with systolic blood pressures in the 170s to 180s and initially presenting to the emergency department with his blood pressure as above 200s/100s. Though this was initially likely due to pain, even after better pain control, he was still having this hypertension and we increased his lisinopril during his hospital stay. PHYSICAL EXAM ON DATE OF DISCHARGE: General: A thin, elderly white male, lying upright in hospital bed, appearing comfortable, in no acute distress, at bedside. Eyes: PERRL. Sclerae anicteric. Neck: Trachea midline. Lungs: Symmetrical chest expansions with respiration. Minimal rhonchi scattered throughout, though greatly improved from day prior and no wheezing or crackles. Cardio: Regular rate and rhythm without murmurs, rubs, or gallops. Abdomen: Soft, nontender, nondistended. Extremities: No cyanosis or edema. Neuro: The patient is alert and oriented x3. Able to move all extremities. DISCHARGE PLAN/INSTRUCTIONS: I believe that his COPD exacerbation was secondary to his ongoing smoking. He and I did have a thorough discussion about smoking cessation and he and his seemed encouraged for him to finally quit and they tell me that they already have every step of nicotine patches at home. I do believe that this patient would likely benefit from step- up therapy and I did attempt to prescribe him formoterol. Unfortunately, due to issues with his [facility] insurance and the significant cost of this, I did try to prescribe this to a local [facility] pharmacy and just a few days' supply until he can see his primary care provider; however, it was not able to be ordered in time for him to receive it outpatient. 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 However, it does not appear that he has had significantly frequent exacerbations at this time, so if his hoop flaring machine operator helper is comfortable without step-up therapy then that would be reasonable. The patient as previously mentioned already has an appointment on 08/16/19 with his primary care provider and he has been advised to maintain this appointment. At this time, it would be of benefit to have repeat BMP to evaluate if the increased dose of lisinopril is affecting his electrolytes. Otherwise, he is advised to return to the emergency department for sudden onset of shortness of breath, cyanosis, chest pain, fever, chills, or other concerning symptoms. Diet: Regular unrestricted diet. Activity: The patient may return to normal activity as tolerated. I have prescribed the patient just a few days' supply of these new medications as he will have to pay out of pocket for them at [facility] and I am unable to prescribe through the [facility] due to he is having only VA insurance and insurance. If his primary care provider could please provide further prescriptions for his new lisinopril and formoterol if possible then that would be greatly of benefit to this patient. DISCHARGE MEDICATIONS: New medications: 1. Tylenol 650 mg p.o. q.4 hours p.r.n. pain. 2. Ibuprofen 800 mg p.o. q.8 hours p.r.n. pain. 3. Zithromax 250 mg p.o. daily x3 days. 4. Formoterol 20 mcg inhaled b.i.d. 5. Nicotine patch 7 mg per 24 hours, 1 patch transdermally daily. 6. Guaifenesin/codeine 100 mg/10 mg, 5 mL p.o. q.4 hours p.r.n. cough. 7. Lisinopril 20 mg p.o. daily. 8. Prednisone 60 mg p.o. daily x3 days. Continued home medications: 1. Ferrous sulfate 325 mg p.o. daily. 2. Tamsulosin 0.4 mg p.o. daily. 3. Aspirin 81 mg p.o. b.i.d. 4. Albuterol 2 puffs inhaled q.4 hours p.r.n. shortness of breath/wheezing. 5. DuoNeb 1 neb inhaled q.6 hours. 6. Vitamin D tab 1000 units p.o. daily. 7. Metoprolol tartrate 25 mg p.o. b.i.d. 8. Lasix 10 mg p.o. daily p.r.n. lower extremity edema. 9. Pantoprazole 40 mg p.o. daily. 10. Diazepam 10 mg p.o. at bedtime. 11. Diazepam 5 mg p.o. q.a.m. 12. Lipitor 80 mg p.o. daily. CONDITION ON DISCHARGE: Stable. DISPOSITION: Home. TIME SPENT: Approximately 45 minutes was spent on this discharge, approximately half this time was spent at bedside evaluating the patient, discussing the plan of care and arranging for the medications. GARY BUTTS [id number]/[facility] [place] #: [id number] BLAIR
[2019-08-14] MEDS ORDERED: Lisinopril TAB* 10 MG PO SCH (09:00)
== END 2019-08-13 12:40 | disposition home or self-care (01) | DRG 190 ==
LOC: ED 09:51 → MEDTELE 12:48 → OBSVTOIN 08-12 19:20
PROVIDERS: ADMIT Internal Medicine; ATTEND Internal Medicine
PROC: 4A02XM4 Measurement of Cardiac Total Activity, External Approach (ICD-10-PCS; principal; 2019-08-12)
DX: J44.1 Chronic obstructive pulmonary disease with (acute) exacerbation (principal); J96.01 Acute respiratory failure with hypoxia; M84.48XA Pathological fracture, other site, initial encounter for fracture; J90 Pleural effusion, not elsewhere classified; I10 Essential (primary) hypertension; K21.9 Gastro-esophageal reflux disease without esophagitis; F17.210 Nicotine dependence, cigarettes, uncomplicated; G89.29 Other chronic pain; F41.9 Anxiety disorder, unspecified; F32.9 Major depressive disorder, single episode, unspecified; R79.89 Other specified abnormal findings of blood chemistry; N40.0 Benign prostatic hyperplasia without lower urinary tract symptoms; G25.0 Essential tremor; D50.9 Iron deficiency anemia, unspecified; Z88.8 Allergy status to other drugs, medicaments and biological substances; Z79.82 Long term (current) use of aspirin; Z79.899 Other long term (current) drug therapy
CPT/HCPCS: 36415; 78452; 80048; 80053; 80061; 83036; 84484; 85025; 93005; 93017; 93306; 94640; 99284; A9270-GY; A9502; J0360; J0456; J1650; J2405; J2785; J3535; J7512

== ENCOUNTER 2021-06-10 15:07 | Inpatient (IN) ==
[2021-06-10] MEDS ORDERED: Albuterol/Ipratropium NEB.SOL (2.5/0.5 MG) 3 ML NEB.SOLN INH PRN (15:58)
[2021-06-10] MEDS: Albuterol/Ipratropium NEB.SOL (2.5/0.5 MG) 3 ML NEB.SOLN INH SCH ×2 (17:32→19:20)
[2021-06-10 18:27] LABS: ABS Basophils 0.1 10^3/ul (0-0.2); ABS Eosinophils 0.1 10^3/ul (0-0.6); ABS Monocytes 1.2 10^3/ul (0-0.8); ABS Neutrophils 10.7 10^3/ul (1.5-7.7); Eosinophil % 0.4 %; Hematocrit 25 % (42-52); Hemoglobin 7.9 g/dL (14.0-18.0); Lymphocyte % 7.6 %; Mean Corpuscular HGB Conc 32 g/dL (31-36); Mean Corpuscular Hemoglobin 30 pg (27-31); Mean Corpuscular Volume 93 fL (80-94); Mean Platelet Volume 7.7 fL (7.4-10.4); Platelet Count 495 10^3/uL (150-450); Red Blood Count 2.66 10^6 /uL (4.18-5.48); Red Cell Distribution Width 16 % (10-15); White Blood Count 12.9 10^3/uL (3.5-10.8)
[2021-06-10 18:43] LABS: Calcium 8.5 mg/dL (8.6-10.3); Potassium 3.9 mmol/L (3.5-5.0)
[2021-06-10 18:51] LABS: Activated Partial Thrombo Time 31.1 seconds (26.0-38.0); INR 1.06 (0.86-1.15)
[2021-06-10] MEDS: Albuterol HFA INHALER 8 gm MDI INH PRN (20:19)
[2021-06-10] MEDS: Heparin 5000 UNITS/ML 1 mL VIAL SUBCUT SCH (22:30)
[2021-06-10] MEDS ORDERED: Dextran 70/Hypromellose Tears Eye Drops 15 ml BTL (for Artificials Tears) BOTH EYES PRN (23:30)
[2021-06-11] MEDS: Albuterol HFA INHALER 8 gm MDI INH PRN (02:50)
[2021-06-11] MEDS: Heparin 5000 UNITS/ML 1 mL VIAL SUBCUT SCH ×4 (06:04→20:35)
[2021-06-11] MEDS: Albuterol/Ipratropium NEB.SOL (2.5/0.5 MG) 3 ML NEB.SOLN INH SCH ×2 (06:08→11:01)
[2021-06-11 08:29] LABS: ABS Basophils 0.1 10^3/ul (0-0.2); ABS Lymphocytes 0.5 10^3/ul (1.0-4.8); ABS Monocytes 0.9 10^3/ul (0-0.8); Eosinophil % 0.1 %; Hematocrit 26 % (42-52); Hemoglobin 8.4 g/dL (14.0-18.0); Lymphocyte % 3.6 %; Mean Corpuscular HGB Conc 32 g/dL (31-36); Mean Corpuscular Hemoglobin 29 pg (27-31); Mean Corpuscular Volume 92 fL (80-94); Mean Platelet Volume 7.5 fL (7.4-10.4); Platelet Count 522 10^3/uL (150-450); Red Blood Count 2.88 10^6 /uL (4.18-5.48); Red Cell Distribution Width 16 % (10-15); White Blood Count 14.5 10^3/uL (3.5-10.8)
[2021-06-11] MEDS: Polyethylene Glycol 3350 17 GM PACKET PO SCH (08:30)
[2021-06-11] MEDS: Cholecalciferol (VIT D3) 400 units TAB PO SCH (08:32)
[2021-06-11] MEDS: Lidocaine PATCH 5% PATCH TRANSDERM SCH (08:34)
[2021-06-11] MEDS ORDERED: Lidocaine PATCH 5% PATCH TRANSDERM SCH (09:00)
[2021-06-11 09:04] LABS: Potassium 4.6 mmol/L (3.5-5.0); eGFR CKD-EPI 55.4 (>60)
[2021-06-11] MEDS ORDERED: Furosemide 20 mg/2 ml IV VIAL IV ONE (10:14)
[2021-06-11] MEDS ORDERED: Midazolam 2 mg/2 ml VIAL 1 mg/ml 2 ml VIAL (2 mg) ONE (14:36)
[2021-06-11] MEDS ORDERED: Albuterol HFA INHALER 8 gm MDI INH SCH (16:00)
[2021-06-11 16:01] LABS: Body Fluid Source Pleural Fluid
[2021-06-11 17:05] LABS: Body Fluid WBC 294 /mcL
[2021-06-11 17:39] LABS: Body Fluid Mono 6 %; Body Fluid NRBC 1; Body Fluid Total Cells Counted 200
[2021-06-11 17:49] LABS: Body Fluid Appearance Clear; Body Fluid Color Yellow
[2021-06-11] MEDS ORDERED: Albuterol/Ipratropium NEB.SOL (2.5/0.5 MG) 3 ML NEB.SOLN INH SCH (19:00)
[2021-06-11] MEDS: Albuterol HFA INHALER 8 gm MDI INH SCH (19:40)
[2021-06-11] MEDS: SPIRIVA Respimat (tiotropium) 2.5 mcg/inh Inhaler INH SCH (19:41)
[2021-06-11] MEDS: Lidocaine Patch REMOVE NOTE PATCH OFF SCH (20:39)
[2021-06-11] MEDS ORDERED: Lidocaine Patch REMOVE NOTE PATCH OFF SCH (21:00)
[2021-06-12] MEDS: Albuterol HFA INHALER 8 gm MDI INH SCH ×4 (00:44→19:47)
[2021-06-12] MEDS ORDERED: Metoprolol Tartrate 5 mg VIAL 5 ml VIAL (1 mg/ml) IV ONE (04:03)
[2021-06-12] MEDS: Heparin 5000 UNITS/ML 1 mL VIAL SUBCUT SCH (06:27)
[2021-06-12 06:45] LABS: ABS Lymphocytes 0.8 10^3/ul (1.0-4.8); ABS Monocytes 0.6 10^3/ul (0-0.8); ABS Neutrophils 8.5 10^3/ul (1.5-7.7); Eosinophil % 0.3 %; Hematocrit 23 % (42-52); Hemoglobin 7.3 g/dL (14.0-18.0); Lymphocyte % 7.7 %; Mean Corpuscular HGB Conc 32 g/dL (31-36); Mean Corpuscular Hemoglobin 30 pg (27-31); Mean Corpuscular Volume 92 fL (80-94); Mean Platelet Volume 8.3 fL (7.4-10.4); Platelet Count 431 10^3/uL (150-450); Red Blood Count 2.44 10^6 /uL (4.18-5.48); Red Cell Distribution Width 16 % (10-15)
[2021-06-12 06:53] LABS: Calcium 8.4 mg/dL (8.6-10.3); Potassium 3.9 mmol/L (3.5-5.0); eGFR CKD-EPI 50.5 (>60)
[2021-06-12] MEDS: SPIRIVA Respimat (tiotropium) 2.5 mcg/inh Inhaler INH SCH ×2 (08:27→13:48)
[2021-06-12] MEDS ORDERED: Ondansetron 4 mg VIAL 2 MG/ML 2 ml VIAL ONE (09:08)
[2021-06-12] MEDS: Ondansetron 4 mg VIAL 2 MG/ML 2 ml VIAL IV PRN (09:10)
[2021-06-12] MEDS ORDERED: Furosemide 20 mg/2 ml IV VIAL IV ONE (10:12)
[2021-06-12] MEDS: Cholecalciferol (VIT D3) 400 units TAB PO SCH ×2 (10:59→12:43)
[2021-06-12 11:17] LABS: TSH Ultra Thyroid Stim Horm 1.18 mcIU/mL (0.34-5.60)
[2021-06-12] MEDS: Lidocaine PATCH 5% PATCH TRANSDERM SCH (12:45)
[2021-06-12] MEDS: Polyethylene Glycol 3350 17 GM PACKET PO SCH (12:45)
[2021-06-12] MEDS: Mometasone/Formoter 100/5 MDI INH SCH ×2 (13:48→19:50)
[2021-06-12] MEDS: Enoxaparin 40 MG/0.4 ML SYR SUBCUT SCH (21:01)
[2021-06-12] MEDS: Lidocaine Patch REMOVE NOTE PATCH OFF SCH (21:07)
[2021-06-12 23:19] LABS: Hematocrit 26 % (42-52); Hemoglobin 8.8 g/dL (14.0-18.0); Mean Corpuscular HGB Conc 35 g/dL (31-36); Mean Corpuscular Hemoglobin 31 pg (27-31); Mean Corpuscular Volume 90 fL (80-94); Mean Platelet Volume 7.2 fL (7.4-10.4); Platelet Count 398 10^3/uL (150-450); Red Blood Count 2.83 10^6 /uL (4.18-5.48); Red Cell Distribution Width 16 % (10-15); White Blood Count 9.4 10^3/uL (3.5-10.8)
[2021-06-13] MEDS: Albuterol HFA INHALER 8 gm MDI INH SCH ×3 (01:02→12:32)
[2021-06-13 05:07] LABS: Calcium 8.5 mg/dL (8.6-10.3); Magnesium 1.9 mg/dL (1.9-2.7); Potassium 3.7 mmol/L (3.5-5.0); eGFR CKD-EPI 49.2 (>60)
[2021-06-13 06:12] LABS: ABS Basophils 0.1 10^3/ul (0-0.2); ABS Eosinophils 0.1 10^3/ul (0-0.6); ABS Monocytes 0.9 10^3/ul (0-0.8); ABS Neutrophils 7.5 10^3/ul (1.5-7.7); Eosinophil % 1.1 %; Hematocrit 29 % (42-52); Hemoglobin 9.5 g/dL (14.0-18.0); Lymphocyte % 10.7 %; Mean Corpuscular HGB Conc 33 g/dL (31-36); Mean Corpuscular Hemoglobin 30 pg (27-31); Mean Corpuscular Volume 90 fL (80-94); Mean Platelet Volume 8.3 fL (7.4-10.4); Platelet Count 443 10^3/uL (150-450); Red Cell Distribution Width 16 % (10-15); White Blood Count 9.6 10^3/uL (3.5-10.8)
[2021-06-13] MEDS: SPIRIVA Respimat (tiotropium) 2.5 mcg/inh Inhaler INH SCH (07:35)
[2021-06-13] MEDS: Mometasone/Formoter 100/5 MDI INH SCH ×2 (07:36→20:37)
[2021-06-13] MEDS: Polyethylene Glycol 3350 17 GM PACKET PO SCH (08:21)
[2021-06-13] MEDS: Cholecalciferol (VIT D3) 400 units TAB PO SCH (10:38)
[2021-06-13 10:43] LABS: Phosphorus 3.1 mg/dL (2.5-5.0)
[2021-06-13] MEDS ORDERED: Albuterol/Ipratropium NEB.SOL (2.5/0.5 MG) 3 ML NEB.SOLN INH ONE (11:32)
[2021-06-13] MEDS: Lidocaine PATCH 5% PATCH TRANSDERM SCH (12:14)
[2021-06-13] MEDS: ALBUMIN HUMAN 5% IV SCH ×2 (12:36→15:16)
[2021-06-13 12:38] LABS: Lactate Dehydrogenase, BF 203 U/L
[2021-06-13] MEDS ORDERED: Labetalol IV 5 MG/ML 20 ml VIAL IV PUSH PRN (15:18)
[2021-06-13 15:22] LABS: Glucose, BF 113 mg/dL
[2021-06-13 15:26] LABS: Albumin, BF 1.4 g/dL; Fluid Type, Albumin PLEURAL; Fluid Type, Protein, Total PLEURAL
[2021-06-13] MEDS ORDERED: Albuterol HFA INHALER 8 gm MDI INH PRN (15:26)
[2021-06-13] MEDS: D5LR 1000 ml BAG 1,000 ML IV SCH (17:34)
[2021-06-13 18:07] LABS: Albumin 3.2 g/dL (3.2-5.2); Albumin/Globulin Ratio 1.4 (1-3); Direct Bilirubin 0.1 mg/dL (0.03-0.18); Globulin 2.3 g/dL (2-4); Indirect Bilirubin 0.5 mg/dL (0.3-1.0); Total Bilirubin 0.6 mg/dL (0.2-1.0); Total Protein 5.5 g/dL (6.4-8.9)
[2021-06-13] MEDS: Albuterol/Ipratropium NEB.SOL (2.5/0.5 MG) 3 ML NEB.SOLN INH SCH (20:37)
[2021-06-13] MEDS: Ondansetron 4 mg VIAL 2 MG/ML 2 ml VIAL IV PRN (22:19)
[2021-06-13] MEDS: Enoxaparin 40 MG/0.4 ML SYR SUBCUT SCH (23:30)
[2021-06-13] MEDS: Lidocaine Patch REMOVE NOTE PATCH OFF SCH (23:30)
[2021-06-14] MEDS: D5LR 1000 ml BAG 1,000 ML IV SCH (04:21)
[2021-06-14 06:02] LABS: ABS Eosinophils 0.1 10^3/ul (0-0.6); ABS Lymphocytes 0.6 10^3/ul (1.0-4.8); ABS Monocytes 0.9 10^3/ul (0-0.8); ABS Neutrophils 6.8 10^3/ul (1.5-7.7); Eosinophil % 1.7 %; Hematocrit 29 % (42-52); Hemoglobin 9.6 g/dL (14.0-18.0); Lymphocyte % 7.6 %; Mean Corpuscular HGB Conc 33 g/dL (31-36); Mean Corpuscular Hemoglobin 30 pg (27-31); Mean Corpuscular Volume 90 fL (80-94); Mean Platelet Volume 7.5 fL (7.4-10.4); Nucleated Red Blood Cells % 0.1; Platelet Count 418 10^3/uL (150-450); Red Blood Count 3.21 10^6 /uL (4.18-5.48); Red Cell Distribution Width 15 % (10-15); White Blood Count 8.5 10^3/uL (3.5-10.8)
[2021-06-14 06:17] LABS: Blood Urea Nitrogen 18 mg/dL (6-24); CO2 Carbon Dioxide 39 mmol/L (22-32); Calcium 8.6 mg/dL (8.6-10.3); Chloride 98 mmol/L (101-111); Glucose 127 mg/dL (70-100); Magnesium 1.9 mg/dL (1.9-2.7); Sodium 141 mmol/L (135-145); eGFR CKD-EPI 60.2 (>60)
[2021-06-14 06:35] LABS: Anion Gap 4 mmol/L (2-11)
[2021-06-14] MEDS: Mometasone/Formoter 100/5 MDI INH SCH ×2 (07:14→19:04)
[2021-06-14] MEDS: Albuterol/Ipratropium NEB.SOL (2.5/0.5 MG) 3 ML NEB.SOLN INH SCH (07:15)
[2021-06-14] MEDS ORDERED: Albuterol/Ipratropium NEB.SOL (2.5/0.5 MG) 3 ML NEB.SOLN INH PRN (07:21)
[2021-06-14] MEDS ORDERED: Metoclopramide 5 MG/ML VIAL (10 mg) IV PRN (08:34)
[2021-06-14] MEDS: Ondansetron 4 mg VIAL 2 MG/ML 2 ml VIAL IV PRN (08:47)
[2021-06-14] MEDS: Lidocaine PATCH 5% PATCH TRANSDERM SCH (09:03)
[2021-06-14 09:14] LABS: Potassium Redraw 3.5 mmol/L (3.5-5.0)
[2021-06-14] MEDS: Cholecalciferol (VIT D3) 400 units TAB PO SCH (09:30)
[2021-06-14] MEDS: Polyethylene Glycol 3350 17 GM PACKET PO SCH (09:45)
[2021-06-14] MEDS ORDERED: Acetaminophen IV 1 GM/100ML 100 ML IV PRN (10:18)
[2021-06-14] MEDS: Albuterol HFA INHALER 8 gm MDI INH SCH ×2 (14:58→19:04)
[2021-06-14] MEDS: Enoxaparin 40 MG/0.4 ML SYR SUBCUT SCH (22:03)
[2021-06-14] MEDS: Lidocaine Patch REMOVE NOTE PATCH OFF SCH (22:15)
[2021-06-15] MEDS: Albuterol HFA INHALER 8 gm MDI INH SCH ×4 (00:31→18:57)
[2021-06-15 06:11] LABS: ABS Basophils 0.1 10^3/ul (0-0.2); ABS Eosinophils 0.3 10^3/ul (0-0.6); ABS Lymphocytes 0.8 10^3/ul (1.0-4.8); ABS Neutrophils 7.4 10^3/ul (1.5-7.7); Eosinophil % 2.8 %; Hematocrit 28 % (42-52); Hemoglobin 9.3 g/dL (14.0-18.0); Lymphocyte % 8.3 %; Mean Corpuscular HGB Conc 34 g/dL (31-36); Mean Corpuscular Hemoglobin 31 pg (27-31); Mean Corpuscular Volume 90 fL (80-94); Mean Platelet Volume 7.4 fL (7.4-10.4); Platelet Count 360 10^3/uL (150-450); Red Blood Count 3.06 10^6 /uL (4.18-5.48); Red Cell Distribution Width 15 % (10-15); White Blood Count 9.5 10^3/uL (3.5-10.8)
[2021-06-15 06:27] LABS: Calcium 8.7 mg/dL (8.6-10.3); Magnesium 1.8 mg/dL (1.9-2.7); Potassium 3.6 mmol/L (3.5-5.0); eGFR CKD-EPI 63.9 (>60)
[2021-06-15] MEDS ORDERED: Magnesium Sulfate 2 gm BAG 2 GM/50 ML BAG IVPB ONE (07:39)
[2021-06-15] MEDS ORDERED: Labetalol IV 5 MG/ML 20 ml VIAL IV PUSH ONE (07:54)
[2021-06-15] MEDS: Mometasone/Formoter 100/5 MDI INH SCH ×2 (08:12→18:58)
[2021-06-15] MEDS: Cholecalciferol (VIT D3) 400 units TAB PO SCH (09:35)
[2021-06-15] MEDS: Polyethylene Glycol 3350 17 GM PACKET PO SCH (09:41)
[2021-06-15] MEDS: Lidocaine PATCH 5% PATCH TRANSDERM SCH (09:41)
[2021-06-15] MEDS: D5LR 1000 ml BAG 1,000 ML IV SCH (13:45)
[2021-06-15] MEDS: Ondansetron 4 mg VIAL 2 MG/ML 2 ml VIAL IV PRN (19:56)
[2021-06-15] MEDS: Enoxaparin 40 MG/0.4 ML SYR SUBCUT SCH (21:24)
[2021-06-15] MEDS: Lidocaine Patch REMOVE NOTE PATCH OFF SCH (21:25)
[2021-06-16] MEDS: Albuterol HFA INHALER 8 gm MDI INH SCH ×4 (01:21→19:17)
[2021-06-16] MEDS: D5LR 1000 ml BAG 1,000 ML IV SCH (01:48)
[2021-06-16] MEDS: Mometasone/Formoter 100/5 MDI INH SCH ×2 (07:03→19:18)
[2021-06-16] MEDS: Cholecalciferol (VIT D3) 400 units TAB PO SCH (11:38)
[2021-06-16] MEDS: Lidocaine PATCH 5% PATCH TRANSDERM SCH (11:39)
[2021-06-16] MEDS: Polyethylene Glycol 3350 17 GM PACKET PO SCH (11:40)
[2021-06-16 17:00] LABS: PCO2 Arterial 55 mmHg (35-45)
[2021-06-16 17:10] LABS: PO2 Arterial 40 mmHg (80-100)
[2021-06-16] MEDS: Morphine 2 MG/ML SYRINGE IV PRN ×2 (18:18→21:30)
[2021-06-16] MEDS: Acetaminophen IV 1 GM/100ML 100 ML IV SCH (19:08)
[2021-06-16] MEDS: Senna TAB 8.6 mg TAB PO PRN (20:33)
[2021-06-16] MEDS: Enoxaparin 40 MG/0.4 ML SYR SUBCUT SCH (20:33)
[2021-06-16] MEDS: Lidocaine Patch REMOVE NOTE PATCH OFF SCH (20:50)
[2021-06-17] MEDS: Acetaminophen IV 1 GM/100ML 100 ML IV SCH ×2 (01:04→10:00)
[2021-06-17 04:39] LABS: Calcium 8.6 mg/dL (8.6-10.3); Phosphorus 3.4 mg/dL (2.5-5.0); eGFR CKD-EPI 54.5 (>60)
[2021-06-17] MEDS: Albuterol HFA INHALER 8 gm MDI INH SCH ×2 (06:32→09:00)
[2021-06-17] MEDS: Mometasone/Formoter 100/5 MDI INH SCH ×2 (09:30→19:39)
[2021-06-17] MEDS: Lidocaine PATCH 5% PATCH TRANSDERM SCH (10:00)
[2021-06-17] MEDS: Polyethylene Glycol 3350 17 GM PACKET PO SCH (10:17)
[2021-06-17] MEDS ORDERED: Albuterol/Ipratropium NEB.SOL (2.5/0.5 MG) 3 ML NEB.SOLN INH PRN (15:39)
[2021-06-17] MEDS: Labetalol IV 5 MG/ML 20 ml VIAL IV PUSH PRN ×2 (16:56→23:16)
[2021-06-17] MEDS: Acetaminophen IV 1 GM/100ML VI 100 ML IVPB SCH (16:56)
[2021-06-17] MEDS: Senna TAB 8.6 mg TAB PO PRN (20:16)
[2021-06-17] MEDS: Enoxaparin 40 MG/0.4 ML SYR SUBCUT SCH (20:19)
[2021-06-17] MEDS: Lidocaine Patch REMOVE NOTE PATCH OFF SCH (20:27)
[2021-06-18] MEDS: Acetaminophen IV 1 GM/100ML VI 100 ML IVPB SCH ×3 (01:28→16:48)
[2021-06-18] MEDS: Labetalol IV 5 MG/ML 20 ml VIAL IV PUSH PRN ×2 (04:22→17:44)
[2021-06-18 06:58] LABS: Calcium 8.7 mg/dL (8.6-10.3); Magnesium 2.1 mg/dL (1.9-2.7); Phosphorus 3.7 mg/dL (2.5-5.0); Potassium 4.1 mmol/L (3.5-5.0); eGFR CKD-EPI 56.4 (>60)
[2021-06-18] MEDS: Mometasone/Formoter 100/5 MDI INH SCH ×2 (07:16→19:31)
[2021-06-18 10:04] LABS: Urine Collection Duration 24 h
[2021-06-18] MEDS: Lidocaine PATCH 5% PATCH TRANSDERM SCH (10:30)
[2021-06-18] MEDS: Polyethylene Glycol 3350 17 GM PACKET PO SCH (11:55)
[2021-06-18] MEDS: Albuterol HFA INHALER 8 gm MDI INH PRN (16:39)
[2021-06-18] MEDS: Enoxaparin 40 MG/0.4 ML SYR SUBCUT SCH (20:33)
[2021-06-18] MEDS: Senna TAB 8.6 mg TAB PO PRN (20:33)
[2021-06-18] MEDS: Lidocaine Patch REMOVE NOTE PATCH OFF SCH (20:45)
[2021-06-19] MEDS: Acetaminophen IV 1 GM/100ML VI 100 ML IVPB SCH ×3 (01:10→18:07)
[2021-06-19] MEDS ORDERED: hydrALAZINE 20 mg/ml 1 ML Vial IV IV SLOW PU PRN (03:37)
[2021-06-19 05:00] LABS: ABS Basophils 0.1 10^3/ul (0-0.2); ABS Eosinophils 0.2 10^3/ul (0-0.6); ABS Lymphocytes 0.9 10^3/ul (1.0-4.8); ABS Monocytes 0.8 10^3/ul (0-0.8); ABS Neutrophils 10.3 10^3/ul (1.5-7.7); Eosinophil % 1.4 %; Hematocrit 29 % (42-52); Hemoglobin 9.6 g/dL (14.0-18.0); Lymphocyte % 7.3 %; Mean Corpuscular HGB Conc 32 g/dL (31-36); Mean Corpuscular Hemoglobin 29 pg (27-31); Mean Corpuscular Volume 90 fL (80-94); Mean Platelet Volume 7.2 fL (7.4-10.4); Platelet Count 431 10^3/uL (150-450); Red Blood Count 3.27 10^6 /uL (4.18-5.48); Red Cell Distribution Width 15 % (10-15); White Blood Count 12.2 10^3/uL (3.5-10.8)
[2021-06-19 05:16] LABS: Calcium 9.2 mg/dL (8.6-10.3); eGFR CKD-EPI 65.2 (>60)
[2021-06-19] MEDS: Albuterol HFA INHALER 8 gm MDI INH PRN ×3 (07:42→21:33)
[2021-06-19] MEDS: Mometasone/Formoter 100/5 MDI INH SCH ×2 (07:42→19:33)
[2021-06-19] MEDS: Polyethylene Glycol 3350 17 GM PACKET PO SCH (09:57)
[2021-06-19] MEDS: Lidocaine PATCH 5% PATCH TRANSDERM SCH (10:11)
[2021-06-19] MEDS: Enoxaparin 40 MG/0.4 ML SYR SUBCUT SCH (21:14)
[2021-06-19] MEDS: Lidocaine Patch REMOVE NOTE PATCH OFF SCH (21:23)
[2021-06-20] MEDS: Acetaminophen IV 1 GM/100ML VI 100 ML IVPB SCH ×3 (00:46→16:45)
[2021-06-20 06:57] LABS: ABS Lymphocytes 0.6 10^3/ul (1.0-4.8); ABS Monocytes 0.5 10^3/ul (0-0.8); ABS Neutrophils 10.1 10^3/ul (1.5-7.7); Eosinophil % 0.4 %; Hematocrit 28 % (42-52); Lymphocyte % 5.5 %; Mean Corpuscular HGB Conc 33 g/dL (31-36); Mean Corpuscular Hemoglobin 30 pg (27-31); Mean Corpuscular Volume 91 fL (80-94); Mean Platelet Volume 7.7 fL (7.4-10.4); Platelet Count 411 10^3/uL (150-450); Red Blood Count 3.04 10^6 /uL (4.18-5.48); Red Cell Distribution Width 15 % (10-15); White Blood Count 11.4 10^3/uL (3.5-10.8)
[2021-06-20 07:18] LABS: Calcium 9.1 mg/dL (8.6-10.3); Magnesium 2.1 mg/dL (1.9-2.7); Potassium 4.3 mmol/L (3.5-5.0); eGFR CKD-EPI 66.5 (>60)
[2021-06-20] MEDS: Mometasone/Formoter 100/5 MDI INH SCH (08:45)
[2021-06-20 08:47] LABS: PCO2 Arterial 63 mmHg (35-45); PO2 Arterial 145 mmHg (80-100)
[2021-06-20] MEDS: Lidocaine PATCH 5% PATCH TRANSDERM SCH (09:28)
[2021-06-20] MEDS: Polyethylene Glycol 3350 17 GM PACKET PO SCH (09:28)
[2021-06-20] MEDS ORDERED: LORazepam 2 mg VIAL 1 ml IV PUSH PRN (14:59)
[2021-06-20] MEDS ORDERED: Morphine 2 MG/ML SYRINGE ONE (15:00)
[2021-06-20] MEDS: Morphine 2 MG/ML SYRINGE IV PRN ×3 (15:02→16:58)
[2021-06-20] MEDS: Lidocaine Patch REMOVE NOTE PATCH OFF SCH (20:51)
[2021-06-21] MEDS: Morphine 2 MG/ML SYRINGE IV PRN ×3 (00:17→08:10)
[2021-06-21] MEDS: Acetaminophen IV 1 GM/100ML VI 100 ML IVPB SCH ×2 (01:06→08:12)
[2021-06-21] MEDS: Ondansetron 4 mg VIAL 2 MG/ML 2 ml VIAL IV PRN (08:10)
[2021-06-21] MEDS: Lidocaine PATCH 5% PATCH TRANSDERM SCH (08:12)
[2021-06-21] MEDS: Polyethylene Glycol 3350 17 GM PACKET PO SCH (08:16)
[2021-06-21] MEDS ORDERED: Ondansetron ODT 4 mg TAB 4 MG TAB SL PRN (08:49)
[2021-06-21] MEDS: Morphine ORAL CONCENTRATE 5 MG/0.25 ML ORAL.SYRIN SL PRN ×3 (11:28→23:12)
[2021-06-21] MEDS: Albuterol HFA INHALER 8 gm MDI INH PRN (22:43)
[2021-06-22] MEDS: Lidocaine Patch REMOVE NOTE PATCH OFF SCH ×2 (03:32→22:38)
[2021-06-22] MEDS: Albuterol HFA INHALER 8 gm MDI INH PRN ×3 (08:50→20:46)
[2021-06-22] MEDS: Morphine ORAL CONCENTRATE 5 MG/0.25 ML ORAL.SYRIN SL PRN ×3 (09:19→20:24)
[2021-06-22] MEDS: Lidocaine PATCH 5% PATCH TRANSDERM SCH (09:20)
[2021-06-22] MEDS: Polyethylene Glycol 3350 17 GM PACKET PO SCH (09:25)
[2021-06-23] MEDS: Morphine ORAL CONCENTRATE 5 MG/0.25 ML ORAL.SYRIN SL PRN ×4 (06:49→17:26)
[2021-06-23] MEDS: Polyethylene Glycol 3350 17 GM PACKET PO SCH ×2 (09:38→13:27)
[2021-06-23] MEDS: Lidocaine PATCH 5% PATCH TRANSDERM SCH ×2 (10:16→13:27)
[2021-06-23] MEDS: Albuterol HFA INHALER 8 gm MDI INH PRN (18:55)
[2021-06-23] MEDS: Lidocaine Patch REMOVE NOTE PATCH OFF SCH (20:41)
[2021-06-24] MEDS: Albuterol HFA INHALER 8 gm MDI INH PRN ×3 (03:51→21:29)
[2021-06-24] MEDS: Morphine ORAL CONCENTRATE 5 MG/0.25 ML ORAL.SYRIN SL PRN ×4 (03:59→21:27)
[2021-06-24] MEDS: Polyethylene Glycol 3350 17 GM PACKET PO SCH (10:37)
[2021-06-24] MEDS: Lidocaine PATCH 5% PATCH TRANSDERM SCH (10:42)
[2021-06-24] MEDS: Atropine 1% (ORAL/SL) 15 ML BTL SL PRN (16:39)
[2021-06-24] MEDS: Lidocaine Patch REMOVE NOTE PATCH OFF SCH (22:32)
[2021-06-25] MEDS: Morphine ORAL CONCENTRATE 5 MG/0.25 ML ORAL.SYRIN SL PRN ×7 (05:25→23:55)
[2021-06-25] MEDS: Atropine 1% (ORAL/SL) 15 ML BTL SL PRN ×5 (11:58→20:31)
[2021-06-25] MEDS: Lidocaine PATCH 5% PATCH TRANSDERM SCH (12:49)
[2021-06-25] MEDS: Polyethylene Glycol 3350 17 GM PACKET PO SCH (12:49)
[2021-06-25] MEDS: Lidocaine Patch REMOVE NOTE PATCH OFF SCH ×2 (20:33→23:38)
[2021-06-26] MEDS: Morphine ORAL CONCENTRATE 5 MG/0.25 ML ORAL.SYRIN SL PRN ×5 (05:12→21:40)
[2021-06-26] MEDS: Lidocaine PATCH 5% PATCH TRANSDERM SCH (09:49)
[2021-06-26] MEDS: Polyethylene Glycol 3350 17 GM PACKET PO SCH (09:49)
[2021-06-26] MEDS: Atropine 1% (ORAL/SL) 15 ML BTL SL PRN ×3 (13:14→21:40)
[2021-06-26] MEDS: Albuterol HFA INHALER 8 gm MDI INH PRN (15:48)
[2021-06-26] MEDS: Lidocaine Patch REMOVE NOTE PATCH OFF SCH (21:21)
[2021-06-27] MEDS: Morphine ORAL CONCENTRATE 5 MG/0.25 ML ORAL.SYRIN SL PRN ×6 (00:48→20:39)
[2021-06-27] MEDS: Atropine 1% (ORAL/SL) 15 ML BTL SL PRN ×2 (00:48→13:14)
[2021-06-27] MEDS: Polyethylene Glycol 3350 17 GM PACKET PO SCH (08:35)
[2021-06-27] MEDS: Lidocaine PATCH 5% PATCH TRANSDERM SCH (09:23)
[2021-06-27] MEDS: Lidocaine Patch REMOVE NOTE PATCH OFF SCH (21:15)
[2021-06-28] MEDS: Morphine ORAL CONCENTRATE 5 MG/0.25 ML ORAL.SYRIN SL PRN ×9 (00:15→21:48)
[2021-06-28] MEDS: Lidocaine PATCH 5% PATCH TRANSDERM SCH (09:47)
[2021-06-28] MEDS: Polyethylene Glycol 3350 17 GM PACKET PO SCH (09:47)
[2021-06-28] MEDS: Atropine 1% (ORAL/SL) 15 ML BTL SL PRN ×2 (13:58→16:55)
[2021-06-28] MEDS: Lidocaine Patch REMOVE NOTE PATCH OFF SCH (20:15)
[2021-06-29] MEDS: Morphine ORAL CONCENTRATE 5 MG/0.25 ML ORAL.SYRIN SL PRN ×6 (00:06→21:10)
[2021-06-29 08:42] VITALS: BP 89/48
[2021-06-29] MEDS: Lidocaine PATCH 5% PATCH TRANSDERM SCH (10:25)
[2021-06-29] MEDS: Polyethylene Glycol 3350 17 GM PACKET PO SCH (10:26)
[2021-06-30] MEDS: Lidocaine Patch REMOVE NOTE PATCH OFF SCH (01:27)
[2021-06-30] MEDS: Morphine ORAL CONCENTRATE 5 MG/0.25 ML ORAL.SYRIN SL PRN (06:46)
[2021-06-30] MEDS: Polyethylene Glycol 3350 17 GM PACKET PO SCH (08:15)
[2021-06-30] MEDS: Lidocaine PATCH 5% PATCH TRANSDERM SCH (11:08)
== END 2021-06-30 09:55 | disposition expired | DRG 949 ==
LOC: SSU 15:07 → SUATTDRO 15:07 → ICU 06-16 17:28 → SSU 06-18 04:02 → ICU 06-20 09:42 → SSU 06-20 17:37
PROVIDERS: ADMIT Internal Medicine; ATTEND Internal Medicine